=== PATIENT | female | born 1970 | race Caucasian/White ===

== ENCOUNTER 2018-02-09 07:40 | Day surgery (SDC) | payer MEDICAID ==
[2018-02-05 15:21] LABS: BASOPHILS % (AUTO) 0.2 % (0-1); EOSINOPHILS # (AUTO) 0.2 X10'3 (0-0.9); EOSINOPHILS % (AUTO) 2.4 % (0-6); LYMPHOCYTES % (AUTO) 29.9 % (21-51); MEAN CORPUSCULAR HEMOGLOBIN 32.2 PG (27.0-31.0); MEAN CORPUSCULAR HGB CONC 34.9 % (33.0-36.5); MEAN CORPUSCULAR VOLUME 92.4 FL (78-98); MEAN PLATELET VOLUME 7.9 FL (7.4-10.4); MONOCYTES # (AUTO) 0.3 X10'3 (0-0.9); MONOCYTES % (AUTO) 5.1 % (2-12); NEUTROPHILS # (AUTO) 4.2 X10'3 (1.8-7.7); NEUTROPHILS % (AUTO) 62.4 % (42-75); PRE OP HEMATOCRIT 43.5 % (35.0-45.0); PRE OP HEMOGLOBIN 15.2 g/dL (12.0-16.0); PRE OP PLATELET COUNT 284 X10'3 (140-440); RED BLOOD COUNT 4.71 X10'6 (4.20-5.60); RED CELL DISTRIBUTION WIDTH 13.6 % (11.5-14.5)
[2018-02-05 15:48] LABS: ALBUMIN 3.3 G/DL (3.4-5.0); ALBUMIN/GLOBULIN RATIO 0.9 (1.1-1.5); ALKALINE PHOSPHATASE 69 IU/L (46-116); BLOOD UREA NITROGEN 16 MG/DL (7-18); BUN/CREATININE RATIO 28.6 (6.6-38.0); CALCIUM 8.4 MG/DL (8.5-10.1); CHLORIDE 107 MMOL/L (99-107); CREATININE 0.56 MG/DL (0.40-0.90); PRE OP ALT 23 U/L (30-65); PRE OP ANION GAP 8 (8-16); PRE OP AST 15 U/L (10-37); PRE OP BILIRUB, TOTAL 0.2 MG/DL (0.0-1.0); PRE OP GLUCOSE 109 MG/DL (70-104); PRE OP POTASSIUM 4.2 MMOL/L (3.4-5.1); PRE OP SODIUM 140 MMOL/L (135-145); TOTAL CARBON DIOXIDE 24.6 MMOL/L (24-32); eGFR > 90 ML/MIN
[~2018-02-09] VITALS: Ht 170.2 cm; Wt 92.3 kg
[~2018-02-09 07:40] MED LIST: CITA40TA22 PO; cefazolin/dext.iso 2gm/100 ML IV ONE; famotidine 20mg tablet PO ONE; ringers solution, lacted 1,000 ML IV SCH
[2018-02-09 09:12] VITALS: BP 137/79
[2018-02-09 09:15] VITALS: BP 137/79
[2018-02-09] MEDS ORDERED: BUPIVAcaine/PF 2.5mg/ml (0.25%) 10ml vial ONE (10:30)
[2018-02-09] MEDS ORDERED: LIDOcaine 0.5% (5mg/ml) 50ml vial ONE (10:54)
[2018-02-09] MEDS ORDERED: fentaNYL/PF 50MCG/1 ML 2ML syringe ONE ×2 (10:55→11:09)
[2018-02-09] MEDS ORDERED: midazolam 2 mg/2 ml injection ONE (10:55)
[2018-02-09 11:18] VITALS: BP 108/73
[2018-02-09] MEDS ORDERED: propofol inj 20 ML IV ONE (11:20)
[2018-02-09 11:28] VITALS: BP 106/75
[2018-02-09 11:38] VITALS: BP 106/66
[2018-02-09 11:48] VITALS: BP 108/70
== END 2018-02-09 11:58 | disposition home or self-care (01) ==
LOC: PAS 07:40
PROVIDERS: ATTEND Orthopaedic Surgery Hand Surgery
DX: G56.01 Carpal tunnel syndrome, right upper limb (principal); F17.210 Nicotine dependence, cigarettes, uncomplicated; F41.8 Other specified anxiety disorders; Z88.5 Allergy status to narcotic agent; Z79.891 Long term (current) use of opiate analgesic; Z72.89 Other problems related to lifestyle; Z98.890 Other specified postprocedural states; Z79.899 Other long term (current) drug therapy
CPT/HCPCS: 29848; 36415; 80053; 85025; A6449; J0690; J2001; J2250; J2704; J3010; J3490; J7120; A7000

== ENCOUNTER 2018-03-23 05:55 | Day surgery (SDC) | payer MEDICAID ==
[~2018-03-23] VITALS: Ht 170.2 cm; Wt 94.3 kg
[2018-03-23 06:00] VITALS: BP 128/68
[2018-03-23 06:45] LABS: BASOPHILS % (AUTO) 0.3 % (0-1); EOSINOPHILS # (AUTO) 0.2 X10'3 (0-0.9); EOSINOPHILS % (AUTO) 2.1 % (0-6); MEAN CORPUSCULAR HEMOGLOBIN 31.6 PG (27.0-31.0); MEAN CORPUSCULAR HGB CONC 33.7 % (33.0-36.5); MEAN CORPUSCULAR VOLUME 93.7 FL (78-98); MONOCYTES # (AUTO) 0.6 X10'3 (0-0.9); MONOCYTES % (AUTO) 7.2 % (2-12); NEUTROPHILS # (AUTO) 5.4 X10'3 (1.8-7.7); NEUTROPHILS % (AUTO) 66.4 % (42-75); PRE OP HEMATOCRIT 41.2 % (35.0-45.0); PRE OP HEMOGLOBIN 13.9 g/dL (12.0-16.0); PRE OP PLATELET COUNT 249 X10'3 (140-440); RED CELL DISTRIBUTION WIDTH 12.2 % (11.5-14.5)
[2018-03-23 07:02] LABS: ALBUMIN 3.2 G/DL (3.4-5.0); ALBUMIN/GLOBULIN RATIO 0.9 (1.1-1.5); ALKALINE PHOSPHATASE 54 IU/L (46-116); BLOOD UREA NITROGEN 20 MG/DL (7-18); BUN/CREATININE RATIO 32.8 (6.6-38.0); CALCIUM 9.6 MG/DL (8.5-10.1); CHLORIDE 106 MMOL/L (99-107); CREATININE 0.61 MG/DL (0.40-0.90); PRE OP ALT 24 U/L (30-65); PRE OP ANION GAP 9 (8-16); PRE OP AST 12 U/L (10-37); PRE OP BILIRUB, TOTAL 0.2 MG/DL (0.0-1.0); PRE OP GLUCOSE 107 MG/DL (70-104); PRE OP POTASSIUM 4.1 MMOL/L (3.4-5.1); PRE OP SODIUM 141 MMOL/L (135-145); TOTAL CARBON DIOXIDE 26.5 MMOL/L (24-32); TOTAL PROTEIN 6.6 G/DL (6.4-8.2); eGFR > 90 ML/MIN
[2018-03-23 07:19] VITALS: BP 128/68
[2018-03-23] MEDS ORDERED: ringers solution, lacted 1,000 ML IV SCH (07:29)
[2018-03-23] MEDS ORDERED: meperidine/PF 25mg/ml syringe IV PRN ×3 (07:30)
[2018-03-23] MEDS ORDERED: proCHLORperazine 10 MG/2 ml inj IV PRN (07:30)
[2018-03-23] MEDS ORDERED: morphine 4 MG/ML inj SYRINge IV PRN ×2 (07:30)
[2018-03-23] MEDS ORDERED: ondansetron/PF 4mg/2ml inj IV PRN (07:30)
[2018-03-23] MEDS ORDERED: BUPIVAcaine/PF 2.5mg/ml (0.25%) 10ml vial ONE (07:42)
[2018-03-23] MEDS ORDERED: LIDOcaine 0.5% (5mg/ml) 50ml vial ONE (07:45)
[2018-03-23] MEDS ORDERED: fentaNYL/PF 50MCG/1 ML 2ML syringe ONE (08:24)
[2018-03-23] MEDS ORDERED: midazolam 2 mg/2 ml injection ONE (08:24)
[2018-03-23] MEDS ORDERED: propofol inj 20 ML IV ONE (08:43)
[2018-03-23 08:52] VITALS: BP 112/52
[2018-03-23 09:02] VITALS: BP 125/87
[2018-03-23 09:12] VITALS: BP 115/61
[2018-03-23 09:22] VITALS: BP 120/88
== END 2018-03-23 09:22 | disposition home or self-care (01) ==
LOC: PAS 05:55 → EDUNIT# 09:45
PROVIDERS: ATTEND Orthopaedic Surgery Hand Surgery
DX: G56.02 Carpal tunnel syndrome, left upper limb (principal); F41.8 Other specified anxiety disorders; E66.9 Obesity, unspecified; F17.210 Nicotine dependence, cigarettes, uncomplicated; Z68.32 Body mass index [BMI] 32.0-32.9, adult; Z79.1 Long term (current) use of non-steroidal anti-inflammatories (NSAID); Z88.5 Allergy status to narcotic agent; Z72.89 Other problems related to lifestyle; Z79.891 Long term (current) use of opiate analgesic; Z79.899 Other long term (current) drug therapy; Z98.890 Other specified postprocedural states
CPT/HCPCS: 29848; 36415; 80053; 85025; A6449; J0690; J2001; J2250; J2704; J3010; J3490; J7120